=== PATIENT | female | born 1980 | race Caucasian/White ===

== ENCOUNTER 2018-08-05 10:13 | Outpatient (REF) | payer BC, SELFPAY ==
--- NOTE | 2018-08-05 09:30 | PAPFT_PTH ---
PATIENT: Angela Walker LOC: [facility] U#:[id number] AGE/SX: 38/F ROOM: RE08/05/[address]: BORA Dee : 1980 BED: DIS: 08/05/2018 SPEC #: [id number] RECD: 08/05/18 12:50 STATUS: JARED REQ #: [id number] JULIO: 08/05/18 09:[address]: Charlette Emanuel DEPT: [facility] Cytology RECD BY: Kacey Varela ENTERED: 08/05/18 12:51 SP TYPE: PAPFT OTHR DR: None Tissues: 1 - CX/ENDOCX FOR PAP SMEARS Procedures: PAP THIN PREP/[facility] Screening HPV DNA PROBE Comments: [id number]
== END 2018-08-05 10:33 ==
LOC: LBN 10:13
PROVIDERS: Visit Provider Nurse Practitioner Family
DX: Z12.4 Encounter for screening for malignant neoplasm of cervix (principal); Z11.51 Encounter for screening for human papillomavirus (HPV)
CPT/HCPCS: 88142; 87624

== ENCOUNTER 2018-10-09 13:24 | Outpatient (REF) | payer BC, SELFPAY | END 2018-10-09 13:44 | LOC: LBN 13:24 | PROVIDERS: Visit Provider Nurse Practitioner Women's Health | DX: R30.0 Dysuria (principal) | CPT/HCPCS: 87086; 87186 ==

== ENCOUNTER 2022-02-06 10:58 | Outpatient (REF) | payer BC, SELFPAY ==
--- NOTE | 2022-02-06 09:45 | PAPFT_PTH ---
PATIENT: Angela Walker LOC: [facility] U#:[id number] AGE/SX: 41/F ROOM: RE02/06/[address]: BORA Dee : 1980 BED: DIS: 02/06/2022 SPEC #: [id number] RECD: 02/06/22 13:03 STATUS: JARED REAnastasiya #: [id number] JULIO: 02/06/22 09:[address]: Charlette Emanuel DEPT: [facility] Cytology RECD BY: Kacey Varela ENTERED: 02/06/22 13:03 SP TYPE: PAPFT AMERICO DR: Unknown,Unknown Tissues: 1 - CX/ENDOCX FOR PAP SMEARS Procedures: PAP THIN PREP/[facility] Screening HPV DNA PROBE Comments: [id number]
== END 2022-02-06 10:59 | disposition home or self-care (01) ==
LOC: LBN 10:58
PROVIDERS: Visit Provider Nurse Practitioner Family
DX: Z12.4 Encounter for screening for malignant neoplasm of cervix (principal); Z11.51 Encounter for screening for human papillomavirus (HPV)
CPT/HCPCS: 88142; 87624

== ENCOUNTER → 2022-04-03 00:27 | Outpatient (CLI) | payer BC, SELFPAY ==
--- NOTE | 2022-04-03 09:10 | DI.MAMMO_ITS ---
Exam(s) MAMMO SCREENING EXAM: MAMMO SCREENING CLINICAL HISTORY: screening TECHNIQUE: Mammograms were interpreted according to the usual protocol including computer analysis w [employer] CAD system, tomosynthesis and C-view imaging. COMPARISON: No exams were available for comparison. Baseline exam. FINDINGS: The breasts are composed of scattered fibroglandular densities, Breast Density category B. There is a roughly 2.5 x 1.5 centimeter ovoid area of nodularity in the upper outer quadrant of the r ight breast. No definite suspicious features. Findings may represent overlying glandular tissue. S pot compression views and ultrasound is recommended for further evaluation. No suspicious calcificat ions. No suspicious masses or suspicious microcalcifications are seen in the left breast.. No skin thickening or abnormal axillary lymph nodes are seen. IMPRESSION: BI-RADS Cat 0 - Assessment Incomplete: Need additional imaging evaluation Breast Density - Category B, scattered fibroglandular densities. A negative radiographic report should not delay biopsy if a dominant or clinically suspicious mass is present. Up to ten percent of cancers are not identified on mammography. A negative report may reinforce clinical impression. Adenosis and dense breasts may obscure an underlying neoplasm. False positive reports average 6 to 10%. Patient will receive a letter notifying them of these results.
== END ==
PROVIDERS: Visit Provider Nurse Practitioner Family
DX: Z12.31 Encounter for screening mammogram for malignant neoplasm of breast (principal)
CPT/HCPCS: 77063; 77067

== ENCOUNTER → 2022-04-17 01:36 | Outpatient (CLI) | payer BC, SELFPAY ==
--- NOTE | 2022-04-17 | DI.MAMMO_ITS ---
Exam(s) MG MAMMO SCREEN CALL BACK UNI US BREAST RT COMPLETE EXAM: MG MAMMO SCREEN CALL BACK UNI-RIGHT AND COMPLETE RIGHT BREAST ULTRASOUND CLINICAL HISTORY: F/U MAMMO, OVOID NODULARITY RT BREAST UOQ. TECHNIQUE: Unilateral spot mammographic images obtained with 3D tomosynthesisand utilizing computer aided detection (CAD). . Complete RIGHT breast Ultrasound was also performed, including all 4 quadrants, the retroareolar tamia on, and the ipsilateral axilla. COMPARISON: Prior mammograms were reviewed. This additional imaging was performed due to findings described on the recent screening mammogram of 04/03/2022. FINDINGS: DIAGNOSTIC RIGHT BREAST MAMMOGRAM: Additional mammographic views performed todayrender this area less concerning. COMPLETE RIGHT BREAST ULTRASOUND: Ultrasound performed today reveals no evidence of solid nor significant cystic lesions in all 4 quadr ants of the right breast. Retroareolar region also unremarkable. Scanning of the right axilla reveals no significant adenopathy. IMPRESSION: No radiographic evidence of malignancy in the right breast. Also negative complete right breast ultrasound. Appropriate follow-up is to keep this patient on a yearly mammogram schedule, with earlier imaging i f a self detected breast change is noted.. The patient was informed of these findings and recommendations prior to leaving the department today. BI-RADS Category 2 - Benign Findings Breast Density - Category B - Scattered areas of fibroglandular density Breast density Category C or D implies that the patient has dense breast tissue. Dense breast tissue can make it harder to find cancer on a mammogram. Dense breast tissue is also associated with an incr eased risk of breast cancer. This information about the result of the mammogram report was provided to the patient to raise their awareness. Use this report when you speak with the patient about their risks for breast cancer, which includes their family history. At that time, you may recommend additional screening tests (Ultrasoun d or MRI) as these tests may add significant information. A negative radiographic report should not delay biopsy if a dominant or clinically suspicious mass is present. Up to ten percent of cancers are not identified on mammography. A negative report may reinforce clinical impression. Adenosis and dense breasts may obscure an underlying neoplasm. False positive reports average 6 to 10%. Patient will receive a letter notifying them of these results.
== END ==
PROVIDERS: Visit Provider Nurse Practitioner Family
DX: Z12.31 Encounter for screening mammogram for malignant neoplasm of breast (principal); R92.8 Other abnormal and inconclusive findings on diagnostic imaging of breast; N64.59 Other signs and symptoms in breast
CPT/HCPCS: 76642; 77063; 77067

== ENCOUNTER → 2023-06-12 00:28 | Outpatient (CLI) | payer BC, SELFPAY ==
--- NOTE | 2023-06-12 15:15 | DI.MAMMO_ITS ---
Exam(s) MAMMO SCREENING EXAM: MAMMO SCREENING CLINICAL HISTORY: screening TECHNIQUE: Mammograms were interpreted according to the usual protocol including computer analysis w [employer] CAD system, tomosynthesis and C-view imaging. COMPARISON: 2021 FINDINGS: The breasts are composed of scattered fibroglandular densities, Breast Density category B. No suspicious masses or suspicious microcalcifications are seen. No skin thickening or abnormal axillary lymph nodes are seen. There has been no significant change from prior exams. IMPRESSION: BI-RADS Category 1, Negative mammogram Yearly screening mammography is recommended. Breast Density - Category B, scattered fibroglandular densities. A negative radiographic report should not delay biopsy if a dominant or clinically suspicious mass is present. Up to ten percent of cancers are not identified on mammography. A negative report may reinforce clinical impression. Adenosis and dense breasts may obscure an underlying neoplasm. False positive reports average 6 to 10%. Patient will receive a letter notifying them of these results.
== END ==
PROVIDERS: Visit Provider Advanced Practice Midwife
DX: Z12.31 Encounter for screening mammogram for malignant neoplasm of breast (principal)
CPT/HCPCS: 77063; 77067

== ENCOUNTER 2025-05-24 10:48 | Outpatient (REF) | payer BC, SELFPAY ==
--- NOTE | 2025-05-24 10:30 | PAPFT_PTH ---
PATIENT: Angela Walker LOC: [facility] U#:[id number] AGE/SX: 44/F ROOM: RE05/24/[address]: Renetta Tamez NP : 1980 BED: DIS: 05/24/2025 SPEC #: [id number] RECD: 05/24/25 13:14 STATUS: JARED SIMONS #: [id number] JULIO: 05/24/25 10:[address]: Renetta Tamez NP DEPT: [facility] Cytology RECD BY: Kacey Varela ENTERED: 05/24/25 13:14 SP TYPE: PAPFT AMERICO DR: Unknown,Unknown Tissues: 1 - CX/ENDOCX FOR PAP SMEARS Procedures: PAP THIN PREP/[facility] Screening HPV DNA PROBE Comments: [id number] (HPV 16 & 18/45)
== END 2025-05-24 10:49 | disposition home or self-care (01) ==
LOC: LBN 10:48
PROVIDERS: Visit Provider Nurse Practitioner Women's Health
DX: Z12.4 Encounter for screening for malignant neoplasm of cervix (principal)
CPT/HCPCS: 88142; 87624

== ENCOUNTER 2025-05-27 01:55 | Outpatient (CLI) | payer BC, SELFPAY ==
--- NOTE | 2025-05-27 11:15 | DI.MAMMO_ITS ---
Exam(s) MAMMO SCREENING EXAM: MAMMO SCREENING CLINICAL HISTORY: screening TECHNIQUE: Mammograms were interpreted according to the usual protocol including computer analysis with CAD system, tomosynthesis and C-view imaging. COMPARISON: 2021 and 2022 FINDINGS: The breasts are composed of scattered fibroglandular densities, Breast Density category B. No suspicious masses or suspicious microcalcifications are seen. No skin thickening or abnormal axillary lymph nodes are seen. There has been no significant change from prior exams. IMPRESSION: BI-RADS Category 1, Negative mammogram Yearly screening mammography is recommended. Breast Density - Category B - There are scattered areas of fibroglandular density. Breast density Category C or D implies that the patient has dense breast tissue. Dense breast tissue can make it harder to find cancer on a mammogram. Dense breast tissue is also associated with an increased risk of breast cancer. This information about the result of the mammogram report was provided to the patient to raise their awareness. Use this report when you speak with the patient about their risks for breast cancer, which includes their family history. At that time, you may recommend additional screening tests (Ultrasound or MRI) as these tests may add significant information. A negative radiographic report should not delay biopsy if a dominant or clinically suspicious mass is present. Up to ten percent of cancers are not identified on mammography. A negative report may reinforce clinical impression. Adenosis and dense breasts may obscure an underlying neoplasm. False positive reports average 6 to 10%. Patient will receive a letter notifying them of these results.
== END 2025-05-27 02:15 ==
LOC: DI 01:56
PROVIDERS: Visit Provider Nurse Practitioner Women's Health
DX: Z12.31 Encounter for screening mammogram for malignant neoplasm of breast (principal); R92.323 Mammographic fibroglandular density, bilateral breasts
CPT/HCPCS: 77063; 77067